=== PATIENT | male | born 1990 | race Caucasian/White ===

== ENCOUNTER 2020-05-24 14:12 | Outpatient (REF) | payer SELFPAY ==
[2020-05-27 15:12] LABS: Patient Race White; SARS-CoV-2 RNA Undetected (Undetected); SARS-CoV-2 Specimen Source Nasal
== END 2020-05-24 14:32 ==
LOC: NCHCN 14:12
PROVIDERS: PCP Internal Medicine; Visit Provider Internal Medicine
DX: Z20.828 Contact with and (suspected) exposure to other viral communicable diseases (principal)
CPT/HCPCS: U0003

== ENCOUNTER 2021-04-03 22:34 | Emergency (ER) | payer OTHER, SELFPAY ==
[2021-04-03] VITALS (8 sets, daily range): BP systolic 128–143; BP diastolic 73–79; PULSE 69–82; RESP 16–23; TEMP 36.6; O2SAT 95–99
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
[2021-04-03 23:15] LABS: Abs Immature Grans 0.06 10^3/uL (0.0-0.06); Absolute Basophil Count 0.06 10^3/uL (0.0-0.2); Absolute Eosinophil Count 0.31 10^3/uL (0.0-0.7); Absolute Lymphocyte Count 4.26 10^3/uL (1.2-3.4); Absolute Monocyte Count 1.15 10^3/uL (0.1-0.8); Absolute Neutrophil Count 8.33 10^3/uL (1.2-6.7); Basophils % 0.4; Eosinophils % 2.2; HCT 40.6 % (40.0-50.0); HGB 13.6 g/dL (13.5-17.5); Immature Grans % 0.4; Lymphocytes % 30.1; MCH 29.2 pg (27.0-33.0); MCHC 33.5 % (32.0-36.0); MCV 87.1 fL (80-95); MPV 10.7 fL (8.0-11.0); Monocytes % 8.1; Neutrophils % 58.8; Nucleated RBC 0 %; Platelet Count 329 10^3/uL (130-400); RBC 4.66 10^6/uL (4.36-5.78); RDW 12.9 % (11.8-14.1); WBC 14.16 10^3/uL (4.4-10.8)
[2021-04-03 23:17] LABS: Bilirubin Negative (Negative); Blood Small (Negative); Clarity Clear (Clear); Glucose Negative (Negative); Ketones Negative (Negative); Leukocyte Esterase Negative (Negative); Nitrite Negative (Negative); Specific Gravity 1.015 (1.005-1.025); Urobilinogen 0.2 EU/dL (Up TO 0.2)
[2021-04-03] MEDS: Lactated Ringers 1,000 ML 200 ML IV (23:20)
[2021-04-03 23:25] LABS: Epithelial Cells Rare HPF (Negative); RBC 0-2 HPF (0-2); WBC Negative HPF (0-5)
[2021-04-03 23:26] LABS: Bacteria Rare HPF (Negative); C & S Indicated? No; Casts Negative LPF (Negative); Crystals Negative HPF (Negative); Mucus Negative (Negative)
[2021-04-03 23:26] LABS: ETHANOL BLOOD < 3.0 mg/dL (<3)
[2021-04-03 23:29] LABS: ALT 30 U/L (16-63); AST 15 U/L (15-37); Albumin 3.9 g/dL (3.4-5.0); Alkaline Phosphatase 90 U/L (46-116); Anion Gap 10.5 mmol/L (3-11); BUN 14 mg/dL (7-18); Bilirubin, Total 0.2 mg/dL (0.2-1.0); CO2 24.5 mmol/L (21.0-32.0); CREATININE 0.9 mg/dL (0.70-1.30); Calcium 8.4 mg/dL (8.5-10.1); Chloride 107 mmol/L (98-107); Glucose 133 mg/dL (74-106); Potassium 3.7 mmol/L (3.5-5.1); Sodium 142 mmol/L (136-145)
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
[2021-04-04] VITALS: PULSE 81; RESP 20; O2SAT 96
[2021-04-04 00:01] VITALS: BP 126/68; PULSE 67; PULSE 70; RESP 21; O2SAT 97
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
[2021-04-04] MEDS: Ketorolac 30 MG/ML VIAL IVP (00:07)
[2021-04-04 00:10] VITALS: PULSE 63; RESP 16; O2SAT 98
== END 2021-04-04 00:45 | disposition home or self-care (01) ==
PROVIDERS: Emergency Provider Emergency Medicine; PCP Internal Medicine
DX: M25.561 Pain in right knee (principal); M25.572 Pain in left ankle and joints of left foot; R07.89 Other chest pain; V43.52XA Car driver injured in collision with other type car in traffic accident, initial encounter; V03.90XA Pedestrian on foot injured in collision with car, pick-up truck or van, unspecified whether traffic or nontraffic accident, initial encounter; R40.2412 Glasgow coma scale score 13-15, at arrival to emergency department
CPT/HCPCS: 36415; 73562; 74177; 80053; 96361; 96375; 99285; 70450; 71260; 72125; 73610; 73630; 80320; 81003; 81015; 85025; 99284; J1885

== ENCOUNTER 2021-10-21 01:19 | Outpatient (CLI) | payer MEDICAID, SELFPAY ==
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
== END 2021-10-21 01:39 ==
PROVIDERS: PCP Internal Medicine; Visit Provider Internal Medicine
DX: R91.1 Solitary pulmonary nodule (principal); J98.11 Atelectasis; R59.0 Localized enlarged lymph nodes; N28.89 Other specified disorders of kidney and ureter
CPT/HCPCS: 71250

== ENCOUNTER → 2022-03-10 01:04 | Outpatient (CLI) | payer MEDICAID, SELFPAY ==
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
== END ==
PROVIDERS: PCP Internal Medicine; Visit Provider Internal Medicine
DX: N28.89 Other specified disorders of kidney and ureter (principal); R91.8 Other nonspecific abnormal finding of lung field
CPT/HCPCS: 74183

== ENCOUNTER 2022-11-14 14:36 | Outpatient (REF) | payer MEDICAID, SELFPAY ==
[2022-11-14 15:28] LABS: HCT 44.8 % (40.0-50.0); HGB 14.9 g/dL (13.5-17.5); MCH 28.4 pg (27.0-33.0); MCHC 33.3 % (32.0-36.0); MCV 86 fL (80-95); MPV 11.1 fL (8.0-11.0); Platelet Count 338 10^3/uL (130-400); RBC 5.24 10^6/uL (4.36-5.78); RDW 13.2 % (11.8-14.1)
[2022-11-14 15:31] LABS: ESR 4 mm/hr (0-15)
[2022-11-14 15:35] LABS: ALT 27 U/L (16-63); AST 14 U/L (15-37); Albumin 4.3 g/dL (3.4-5.0); Alkaline Phosphatase 83 U/L (46-116); Anion Gap 9.9 mmol/L (3-11); BUN 12 mg/dL (7-18); Bilirubin, Total 0.4 mg/dL (0.2-1.0); CO2 25.1 mmol/L (21.0-32.0); CREATININE 0.8 mg/dL (0.70-1.30); Calcium 9.3 mg/dL (8.5-10.1); Chloride 105 mmol/L (98-107); Estimated GFR 119.84 (mL/min/1.73m2); Glucose 96 mg/dL (74-106); Potassium 4.5 mmol/L (3.5-5.1); Sodium 140 mmol/L (136-145); Total Protein 7.4 g/dL (6.4-8.2)
[2022-11-16 12:33] LABS: IgA 170 mg/dL (85-499); Interpretation (See Note); Tissue Transglutaminase IgA 23.1 U/mL (<4.0)
== END 2022-11-14 14:37 | disposition home or self-care (01) ==
LOC: NCHCN 14:36
PROVIDERS: PCP Internal Medicine; Visit Provider Internal Medicine
DX: R19.7 Diarrhea, unspecified (principal); R10.30 Lower abdominal pain, unspecified; F17.210 Nicotine dependence, cigarettes, uncomplicated; F90.8 Attention-deficit hyperactivity disorder, other type
CPT/HCPCS: 80053; 82784; 83516; 85027; 85652

== ENCOUNTER 2022-11-29 12:16 | Outpatient (REF) | payer MEDICAID, SELFPAY | END 2022-11-29 12:17 | disposition home or self-care (01) | LOC: NCHCN 12:16 | PROVIDERS: PCP Internal Medicine; Visit Provider Internal Medicine | DX: R19.7 Diarrhea, unspecified (principal); R10.30 Lower abdominal pain, unspecified | CPT/HCPCS: 87329; 87493; 82272; 83630 ==

== ENCOUNTER 2022-12-07 01:23 | Outpatient (CLI) | payer MEDICAID, SELFPAY ==
--- NOTE | 2022-12-07 | DI.US_ITS ---
Exam(s) US RENAL EXAM: US RENAL CLINICAL HISTORY: RENAL MASS N28.89 FU FROM MRI 03/10/22. TECHNIQUE: Oliveira scale, color and spectral Doppler were used. COMPARISON: CT RENAL COLIC WO CONTRAST from 01/10/[address] CHEST/ABD/PEL W from 04/03/[address] CHEST WO from 10/21/2021 MR MR ABDOMEN WO/W from 03/10/2022 FINDINGS: Renal size in cm: Right: 11.3 left: 10 point Echogenicity: Normal Hydronephrosis: No Cyst or mass: No Nephrolithiasis: No Bladder:Normal . Both ureteral jets visualized. Prevoid vol:39 Postvoid vol: Prostate not visible. IMPRESSION: 8 millimeter lesion seen on CT and MRI is not visible by ultrasound. Findings are consistent with a small hemorrhagic cyst. Unless the patient is at high risk for renal cancer, no prior follow-up maggie mmended. DATA REPOSITORY:
== END 2022-12-07 01:43 ==
LOC: DI 01:24
PROVIDERS: PCP Internal Medicine; Visit Provider Internal Medicine
DX: N28.89 Other specified disorders of kidney and ureter (principal); N28.1 Cyst of kidney, acquired
CPT/HCPCS: 76770

== ENCOUNTER 2023-09-14 06:51 | Emergency (ER) | payer SELFPAY ==
[2023-09-14 06:58] VITALS: BP 144/74; PULSE 75; RESP 18; TEMP 36.6; O2SAT 99
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
[2023-09-14] MEDS: Ibuprofen 600 MG TAB PO (07:42)
[2023-09-14] MEDS: Bacitracin 1 PACKET TP (07:43)
[2023-09-14] MEDS: Acetaminophen 325 MG TAB 650 MG PO (07:43)
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
== END 2023-09-14 08:13 | disposition home or self-care (01) ==
PROVIDERS: Emergency Provider Student in an Organized Health Care Education/Training Program; PCP Internal Medicine
DX: T22.211A Burn of second degree of right forearm, initial encounter (principal); X19.XXXA Contact with other heat and hot substances, initial encounter
CPT/HCPCS: 99282; 99283

== ENCOUNTER 2024-09-11 16:55 | Emergency (ER) | payer OTHER, SELFPAY ==
[2024-09-11 16:57] VITALS: BP 127/87; PULSE 71; RESP 16; TEMP 36.7; O2SAT 98
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
[2024-09-11] MEDS: Lidocaine/Epinephri/Tetracaine Topical Gel 3 ML TP (17:33)
[2024-09-11] MEDS: Lidocaine 2% Multi-Dose 20 ML VIAL (18:26)
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
== END 2024-09-11 18:37 | disposition home or self-care (01) ==
PROVIDERS: Emergency Provider Student in an Organized Health Care Education/Training Program; PCP Internal Medicine
DX: S61.011A Laceration without foreign body of right thumb without damage to nail, initial encounter (principal); W26.8XXA Contact with other sharp object(s), not elsewhere classified, initial encounter
CPT/HCPCS: 12001; 99283; 73140; J2003

== ENCOUNTER 2024-09-14 09:56 | Emergency (ER) | payer OTHER, SELFPAY ==
[2024-09-14 10:10] VITALS: BP 108/74; PULSE 75; RESP 15; TEMP 36.6; O2SAT 97
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
== END 2024-09-14 10:59 | disposition home or self-care (01) ==
PROVIDERS: Emergency Provider Physician Assistant; PCP Internal Medicine
DX: M20.011 Mallet finger of right finger(s) (principal)
CPT/HCPCS: 99282; 99283

== ENCOUNTER 2024-09-23 17:56 | Emergency (ER) | payer OTHER, SELFPAY ==
[2024-09-23 18:02] VITALS: BP 135/76; PULSE 74; TEMP 36.7; O2SAT 97
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
[2024-09-23 18:33] VITALS: BP 135/76; PULSE 74; RESP 16; TEMP 36.7; O2SAT 97
== END 2024-09-23 18:40 | disposition home or self-care (01) ==
PROVIDERS: Emergency Provider Physician Assistant; PCP Family Medicine
DX: Z48.02 Encounter for removal of sutures (principal); Z73.9 Problem related to life management difficulty, unspecified

== ENCOUNTER 2024-09-29 10:57 | Day surgery (SDC) | payer OTHER, SELFPAY ==
[2024-09-29 11:18] VITALS: BP 134/70; PULSE 70; RESP 18; TEMP 36.6; O2SAT 98
[2024-09-29] MEDS: Lactated Ringers 1,000 ML 80 ML IV (11:30)
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
[2024-09-29] MEDS: Celecoxib 200 MG CAP 400 MG PO (11:39)
[2024-09-29] MEDS: Acetaminophen 500 MG TAB 1000 MG PO (11:39)
[2024-09-29 11:45] VITALS: BMI 29.4
[2024-09-29] MEDS: ceFAZolin 2 GM/50 ML BAG IVPB (11:57)
[2024-09-29] MEDS: Bupivacaine 0.5% Pres-Free W/EPI 30 ML VIAL (12:15)
[2024-09-29 13:00] VITALS: BP 117/68; PULSE 63; RESP 16; TEMP 36; O2SAT 97
--- NOTE | 2024-09-29 13:00 | W.PM.DSUDISC ---
Date of service: 09/29/24 Discharge Plan Disposition Patient Disposition: Home Condition: Good Discharge Details Reason For Visit: R Thumb Tendon Laceration Attending Provider: Wilfredo Troncoso Primary Care Provider: Cedric Slater Home Meds and New Rx's Prescriptions: New hydrocodone-acetaminophen 5-325 mg tablet 1 tab PO Q6H PRN (Reason: pain) Qty: 6 0RF acetaminophen 500 mg tablet 500 mg PO Q6H PRN PRN (Reason: pain) Qty: 40 3RF ibuprofen 600 mg tablet 600 mg PO TID PRN (Reason: pain) Qty: 60 3RF Continued acetaminophen [Tylenol Extra Strength] 500 mg tablet 500 mg PO Q6H PRN No Action ibuprofen 200 mg tablet 400 mg PO Q6H PRN Discharge Instructions Additional Instructions: Thumb Tendon Discharge Instructions Activity: You should keep the hand/thumb elevated as much as possible for the first few days. You may use the other fingers as tolerated but avoid trying to do too much too soon. You may perform light activities with the splint in place. If the wrap seems to be too tight you may unwrap it and rewrap it slightly looser. When it is unwrapped do not try to move the thumb at this point as we allow the tissue to start to heal. Dressing/Cast: Your splint and dressing should stay in place at all times. Do NOT get it wet. You may loosen the Coban wrap if you feel it is too tight and then rewrap more loosely. Medications: - You should take Tylenol and Ibuprofen for baseline pain control. - You have hydrocodone for breakthrough pain. - You may apply ice over the thumb. Follow-up: 7-10 days Referrals: Wilfredo Troncoso MD [ [facility] STAFF PHYSICIAN] - Activity:: Elevate Remove Dressings/Wound Care:: Do Not Remove Shower/Bathe:: Cover Diet:: As Tolerated Discharge Orders Discharge Orders: Discharge Order (Routine); Ordered 09/29/24 Ordered By: Wilfredo Troncoso
--- NOTE | 2024-09-29 13:03 | W.PM.OP ---
Operative Note Operative Note PRE-OP DIAGNOSIS: Right Thumb Extensor Tendon (Zone II) Laceration POST-OP DIAGNOSIS: same PROCEDURE: Open repair of right thumb extensor tendon, zone 2 SURGEON: Wilfredo Troncoso ANESTHESIA TYPE: General:No Airway Refer to Anesthesia Record ESTIMATED BLOOD LOSS: 0 TOURNIQUET TIME: 0 COMPLICATIONS: None Patient was transported to: same day Patient's condition: stable Indications: Donis is a 34-year-old who suffered a laceration to the dorsum of the right thumb. He no longer had any active extension of the IP joint of the thumb and therefore was determined to likely have involvement of the extensor tendon. Therefore, I recommended proceeding with operative repair of the thumb extensor tendon. Findings: There is near complete involvement of the common extensor tendon at the level of the proximal phalanx. This is a relatively clean cut which was repaired utilizing a modified Servin suture with #3-0 FiberWire as well as a locking horizontal mattress running suture with 4-0 Prolene. Procedure Description: Donis was greeted in the preoperative holding area. His identity was confirmed the correct site identified and marked. The consent was reviewed the patient and signed. History physical was updated. He was taken back to the operating room where he was kept on the stretcher in the supine position. Right hands placed on the hand table. The right hand was prepped ChloraPrep draped in a standard fashion. A timeout performed for safe surgery. Prophylactic and biotics in the form of cefazolin were ministered. The proposed surgical site was anesthetized with 0.25% bupivacaine with epinephrine. This is administered in the large field proximal and along the proposed incision. Incision was made through the previous laceration and extended distally and proximally on either side of the oblique laceration. This was taken down through the skin. Blunt dissection is carried down with tenotomy scissors. A single crossing vein was cauterized. There is immediate area of defect of the extensor tendon. Dissection was carried out over the extensor tendon to remove any soft tissues overlying the tendon. Early scarring healing on this there is also debrided down and the tendon edges were mobilized up to 1 cm on either end. With hyperextension of the thumb the tendon edges were nearly abutted. The wound was then thoroughly irrigated. I repaired the tendon utilizing a modified Servin type suture with a single #3-0 FiberWire. This brought the tendon edges back together with some compression of the tendon edges. This was further compressed and smooth with the use of a running, locking horizontal mattress suture utilizing 4-0 Prolene. A single [id number] Prolene suture was placed on the far radial aspect where there is a slight gapping at the edge. This was tested down to about 45 degrees of flexion of the IP joint without gapping. The patient, who had been awakened at this point, was able to show active extension of the thumb with no gapping of the extensor tendon. The wound was then once again irrigated. The skin was closed with multiple 4-0 nylon sutures. This was then dressed with Xeroform, 4 x 4 gauze. An AlumaFoam splint was placed over the dorsum of the thumb to the base of thumb metacarpal with the IP joint extension. This is secured with Coban. He will keep the splint on at all times for the first week. He will be seen in the office for a wound check and then continued to have IP extension with the use of the stack splint or AlumaFoam for the next 3 weeks. We will start hand therapy at 2 weeks. Date of Procedure: 09/29/24
--- NOTE | 2024-09-29 13:04 | W.ANESPOSTOP ---
Postoperative Evaluation Date, Time and Location Date Performed: 09/29/24 Time Performed: 13:04 Patient Location: Day Surgery Unit Vital Signs Most Recent Imported Vital Signs: Most Recent Vital Signs Temp Pulse Resp BP Pulse Ox 36.0 C L 63 16 117/68 97 09/29/24 13:00 09/29/24 13:00 09/29/24 13:00 09/29/24 13:00 09/29/24 13:00 Pain Score Most Recent Pain Score: Most Recent Pain Score Pain Level 0 09/29/24 13:00 Assessment Mental Status: Awake (Alert & Oriented to Patient Baseline) Airway and Respiratory Function: Patent airway with normal (patient baseline) respiratory exam Cardiovascular Function: Hemodynamically Stable Hydration Status: Adequately Hydrated Nausea & Vomiting: No Nausea or Vomiting Pain: Pt. Denies Any Pain Peripheral Nerve Block: Patient did not receive a nerve block
[2024-09-29 13:26] VITALS: BP 116/67; PULSE 55; RESP 16; TEMP 36.2; O2SAT 96
== END 2024-09-29 13:36 | disposition home or self-care (01) ==
PROVIDERS: PCP Family Medicine; Visit Provider Student in an Organized Health Care Education/Training Program
PROC: (CPT 26418; principal; 2024-09-29 12:00)
DX: S66.221A Laceration of extensor muscle, fascia and tendon of right thumb at wrist and hand level, initial encounter (principal); W26.8XXA Contact with other sharp object(s), not elsewhere classified, initial encounter; W22.8XXA Striking against or struck by other objects, initial encounter; F90.9 Attention-deficit hyperactivity disorder, unspecified type
CPT/HCPCS: 26418; J0690; J1100; J1885; J2250; J2405; J2704

== ENCOUNTER 2025-08-24 18:15 | Outpatient (REF) | payer OTHER, SELFPAY ==
[2025-08-25 18:58] LABS: Hepatitis C Ab w Rflx HCV PCR Negative (Negative)
[2025-08-25 19:00] LABS: HIV-1/2 Ag & Ab Screen Negative (Negative)
[2025-08-26 11:06] LABS: Syphilis Serology (RPR) Negative (Negative)
[2025-08-26 12:05] LABS: Chlamydia Result Negative (Negative); GC Result Negative (Negative)
== END 2025-08-24 18:16 | disposition home or self-care (01) ==
LOC: NCHCN 18:15
PROVIDERS: PCP Family Medicine; Visit Provider Family Medicine
DX: Z11.3 Encounter for screening for infections with a predominantly sexual mode of transmission (principal)
CPT/HCPCS: 86803; 87389; 87491; 87591; 86592